=== PATIENT | female | born 1945 | race Hispanic/Latino ===

== ENCOUNTER → 2022-05-06 | Outpatient (CLI) | payer MEDICARE, OTHER ==
[2022-05-06 16:30] LABS: ALBUMIN 3.7 g/dL (3.5-5.0); CREATININE 0.8 mg/dL (0.5-1.5); POTASSIUM 4.4 mmol/L (3.5-5.1); TOTAL PROTEIN, SERUM 6.9 g/dL (6.0-8.3)
== END | disposition home or self-care (01) ==
LOC: LAB 14:20
PROVIDERS: ATTEND Student in an Organized Health Care Education/Training Program
DX: R06.09 Other forms of dyspnea (principal)
CPT/HCPCS: 36415; 80053

== ENCOUNTER → 2022-05-22 | Outpatient (CLI) | payer OTHER ==
[~2022-05-22] MED LIST: METOPROLOL TARTRATE 1 MG/ML 5ML VIAL IV ONE
== END | disposition home or self-care (01) ==
LOC: RAH 10:47
PROVIDERS: ATTEND Student in an Organized Health Care Education/Training Program
DX: R06.00 Dyspnea, unspecified (principal); M47.815 Spondylosis without myelopathy or radiculopathy, thoracolumbar region
CPT/HCPCS: 75574; J3490 ×2

== ENCOUNTER → 2022-05-23 | Outpatient (CLI) | payer OTHER | END | disposition home or self-care (01) | LOC: SHCH 11:06 | PROVIDERS: ATTEND Student in an Organized Health Care Education/Training Program | DX: R06.00 Dyspnea, unspecified (principal) | CPT/HCPCS: 93306; J3490 ==

== ENCOUNTER 2022-07-10 05:58 | Day surgery (SDC) | payer OTHER ==
[2022-07-08 09:33] LABS: BASOPHILS % (AUTO) 0.6 % (0.0-5.0); EOSINOPHILS % (AUTO) 6.7 % (0.0-8.0); HEMATOCRIT 41.5 % (36-48); LYMPHOCYTES % (AUTO) 24.8 % (21.0-51.0); MEAN CORPUSCULAR HEMOGLOBIN 29.8 pg (27.0-33.0); MEAN CORPUSCULAR HGB CONC 31.6 g/dL (32.0-36.0); MEAN CORPUSCULAR VOLUME 94.3 fL (79-99); MONOCYTES % (AUTO) 6.5 % (3.0-13.0); NEUTROPHILS % (AUTO) 61.1 % (40.0-77.0); PLATELET COUNT (AUTO) 205 K/uL (130-400); RED CELL DISTRIBUTION WIDTH 14.4 % (11.0-15.5); WHITE BLOOD COUNT (AUTO) 7.2 K/uL (4.8-10.8)
[2022-07-08 09:41] LABS: CREATININE 0.9 mg/dL (0.5-1.5); POTASSIUM 4.6 mmol/L (3.5-5.1)
[2022-07-08 09:43] VITALS: BP 166/68
[2022-07-08 09:43] LABS: INR 0.94 (0.85-1.15); PROTHROMBIN TIME 10.3 SEC (9.6-11.6)
[2022-07-08 09:44] LABS: PARTIAL THROMBOPLASTIN TIME 28.6 SEC (26.3-35.5)
[2022-07-08 09:57] LABS: APPEARANCE,URINE CLOUDY (CLEAR); BILIRUBIN,URINE NEGATIVE (NEGATIVE); COLOR,URINE LIGHT-YELLOW (YELLOW); GLUCOSE, URINE (UA) >=1000 mg/dL (NEGATIVE); KETONES,URINE NEGATIVE (NEGATIVE); LEUKOCYTE ESTERASE ,URINE 500 Leu/uL (NEGATIVE); NITRATE,URINE NEGATIVE (NEGATIVE); OCCULT BLOOD,URINE NEGATIVE (NEGATIVE); PH,URINE 6.5 (5.0-8.0); PROTEIN,URINE NEGATIVE (NEGATIVE); UROBILINOGEN,URINE 0.2 mg/dL (0.2-1.0)
[2022-07-08 10:00] LABS: B-TYPE NATRIURETIC PEPTIDE 19 pg/mL (0-100)
[2022-07-08 10:02] LABS: BACTERIA,URINE FEW /HPF (None Seen); SQUAMOUS EPITHELIAL CELL,UR RARE /HPF (0-2); WBC,URINE TNTC /HPF (0-1)
[2022-07-10] VITALS (14 sets, daily range): BP systolic 119–156; BP diastolic 57–96
[~2022-07-10] VITALS: Ht 154.9 cm; Wt 68.5 kg
[~2022-07-10 05:58] MED LIST changes: +AEC81 PO; +ATOR40TA69 PO; +EMPA25TA PO; +INSU300I SQ; +LETR2.5T7 PO; +LISI5TAB21 PO; +METO-408 PO; -METOPROLOL TARTRATE 1 MG/ML 5ML VIAL IV ONE; +PREG50CA63 PO
[2022-07-10] MEDS ORDERED: 0.9%NACL 1000ML 1,000 ML IV ONE (06:17)
[2022-07-10] MEDS ORDERED: LIDOCAINE HCL 400MG/20ML VIAL ONE (07:10)
[2022-07-10] MEDS ORDERED: FENTANYL CITRATE PF 50 MCG/1 ML 2ML VIAL ONE (07:11)
[2022-07-10] MEDS ORDERED: IOHEXOL-350 75 ML VIAL IV ONE (07:11)
[2022-07-10] MEDS ORDERED: NITROGLYCERIN 50MG VIAL ONE (07:11)
[2022-07-10] MEDS ORDERED: HEPARIN 10,000 UNIT/10ML (1,000 UNIT/ML) VIAL ONE (07:11)
[2022-07-10] MEDS ORDERED: VERAPAMIL HCL 2.5 MG/ML VIAL ONE (07:11)
[2022-07-10] MEDS ORDERED: MIDAZOLAM HCL 1 MG/ML 2ML VIAL ONE (07:11)
[2022-07-10] MEDS ORDERED: IOHEXOL-350 50ML VIAL IV ONE (07:11)
[2022-07-10] MEDS ORDERED: GLUCAGON 1MG KIT 1 MG ML IM PRN (08:30)
[2022-07-10] MEDS ORDERED: DEXTROSE 50%-WATER 50 ML DISP.SYRIN IV PRN (08:30)
[2022-07-10] MEDS ORDERED: 0.9%NACL 1000ML 1,000 ML IV SCH (08:30)
== END 2022-07-10 12:50 | disposition home or self-care (01) ==
LOC: DAH 05:58
PROVIDERS: ATTEND Student in an Organized Health Care Education/Training Program
DX: I25.119 Atherosclerotic heart disease of native coronary artery with unspecified angina pectoris (principal); I10 Essential (primary) hypertension; E78.5 Hyperlipidemia, unspecified; E11.9 Type 2 diabetes mellitus without complications; Z79.01 Long term (current) use of anticoagulants; Z79.899 Other long term (current) drug therapy; Z85.3 Personal history of malignant neoplasm of breast; Z92.21 Personal history of antineoplastic chemotherapy; Z90.13 Acquired absence of bilateral breasts and nipples; Z98.890 Other specified postprocedural states; Z98.51 Tubal ligation status; Z82.49 Family history of ischemic heart disease and other diseases of the circulatory system; Z83.3 Family history of diabetes mellitus; Z83.430 Family history of elevated lipoprotein(a)
CPT/HCPCS: 80048; 83880; 85025; 85610; 85730; 87088; 81001; 36415; 71045; 93005; 93458; 87077; 87186; 82948 ×2; C1769; C1894; A4649; J3010; J3490 ×3; J7030; J1644 ×2; J2250; Q9967; A4215; A4335; A4222; A4221; A4663; A4216; A4606; A4223 ×3; A4554; 96360; 96361; 99156; 99157

== ENCOUNTER 2023-08-28 12:13 | Emergency (ER) | payer OTHER ==
[~2023-08-28] VITALS: Ht 154.9 cm; Wt 70.3 kg
[~2023-08-28 12:13] MED LIST changes: +ATOR10 PO; -ATOR40TA69 PO; -INSU300I SQ; -PREG50CA63 PO; +PREG50CA64 PO
[2023-08-28] MEDS: 0.9%NACL 1000ML 1,000 ML IV ONE (12:37)
[2023-08-28] MEDS: KETOROLAC 15MG/ML VIAL (15MG/ML) IV ONE (12:37)
[2023-08-28 12:59] LABS: APPEARANCE,URINE CLEAR (CLEAR); BILIRUBIN,URINE NEGATIVE (NEGATIVE); COLOR,URINE COLORLESS (YELLOW); GLUCOSE, URINE (UA) NEGATIVE (NEGATIVE); KETONES,URINE NEGATIVE (NEGATIVE); LEUKOCYTE ESTERASE ,URINE NEGATIVE Leu/uL (NEGATIVE); NITRATE,URINE NEGATIVE (NEGATIVE); OCCULT BLOOD,URINE NEGATIVE (NEGATIVE); PROTEIN,URINE NEGATIVE (NEGATIVE); UROBILINOGEN,URINE 0.2 mg/dL (0.2-1.0)
[2023-08-28 13:03] LABS: ADD UA MICROSCOPIC NO
[2023-08-28 13:49] LABS: BASOPHILS # (AUTO) 0.05 K/uL (0.00-0.20); BASOPHILS % (AUTO) 0.7 % (0.0-5.0); EOSINOPHILS # (AUTO) 0.66 K/uL (0.00-0.70); EOSINOPHILS % (AUTO) 9.7 % (0.0-8.0); HEMATOCRIT 32.1 % (36-48); IMMATURE GRANULOCYTE ABSOLUTE 0.01 K/uL (0-1); LYMPHOCYTES # (AUTO) 2.4 K/uL (1.0-4.8); LYMPHOCYTES % (AUTO) 35.3 % (21.0-51.0); MEAN CORPUSCULAR HEMOGLOBIN 30.8 pg (27.0-33.0); MEAN CORPUSCULAR VOLUME 90.7 fL (79-99); MONOCYTES # (AUTO) 0.7 K/uL (0.1-1.0); NEUTROPHILS % (AUTO) 44.2 % (40.0-77.0); PLATELET COUNT (AUTO) 167 K/uL (130-400); RED BLOOD CELL COUNT(AUTO) 3.54 MIL/uL (4.00-5.50); RED CELL DISTRIBUTION WIDTH 14.5 % (11.0-15.5); WHITE BLOOD COUNT (AUTO) 6.8 K/uL (4.8-10.8)
[2023-08-28 13:58] LABS: CREATININE 1.1 mg/dL (0.5-1.0); POTASSIUM 4.3 mmol/L (3.5-5.1)
[2023-08-28 14:04] LABS: ALBUMIN 3.4 g/dL (3.5-5.0); BILIRUBIN,TOTAL 0.5 mg/dL (0.2-1.0); TOTAL PROTEIN, SERUM 6.6 g/dL (6.0-8.3)
[2023-08-28 14:21] VITALS: BP 157/71; PULSE 82; RESP 16; O2SAT 99
[2023-08-28] MEDS ORDERED: DICY20TA2 PO (14:47)
== END 2023-08-28 15:07 | disposition home or self-care (01) ==
LOC: EDH 12:13
DX: R10.84 Generalized abdominal pain (principal); R19.7 Diarrhea, unspecified; E11.9 Type 2 diabetes mellitus without complications; E78.00 Pure hypercholesterolemia, unspecified; Z79.82 Long term (current) use of aspirin; Z79.899 Other long term (current) drug therapy; Z90.49 Acquired absence of other specified parts of digestive tract; Z90.89 Acquired absence of other organs; Z98.890 Other specified postprocedural states; Z88.8 Allergy status to other drugs, medicaments and biological substances
CPT/HCPCS: 99283; 96374; 96361; 80053; 83690; 85025; 81003; 36415; J7030; J1885

== ENCOUNTER → 2023-11-06 | Outpatient (CLI) | payer OTHER ==
[~2023-11-06] MED LIST changes: +DICY20TA2 PO
[2023-11-06 12:22] LABS: HEMOGLOBIN A1C 6.3 % (4.0-6.0)
[2023-11-06 12:26] LABS: ALBUMIN 3.7 g/dL (3.5-5.0); BILIRUBIN,TOTAL 0.5 mg/dL (0.2-1.0); CREATININE 1.2 mg/dL (0.5-1.0); POTASSIUM 4.5 mmol/L (3.5-5.1); TOTAL PROTEIN, SERUM 7.3 g/dL (6.0-8.3)
== END | disposition home or self-care (01) ==
LOC: LAB 08:21
PROVIDERS: ATTEND Student in an Organized Health Care Education/Training Program
DX: E11.9 Type 2 diabetes mellitus without complications (principal); E78.5 Hyperlipidemia, unspecified; Z95.1 Presence of aortocoronary bypass graft
CPT/HCPCS: 36415; 80053; 80061; 83036

== ENCOUNTER → 2023-11-11 | Outpatient (CLI) | payer OTHER ==
[~2023-11-11] MED LIST changes: +IOHEXOL 350 MG/ML 100ML INFUS..BTL IV ONE; +METOPROLOL TARTRATE 1 MG/ML 5ML VIAL IV ONE
== END | disposition home or self-care (01) ==
LOC: RAH 13:52
PROVIDERS: ATTEND Student in an Organized Health Care Education/Training Program
DX: R07.9 Chest pain, unspecified (principal); Z95.1 Presence of aortocoronary bypass graft
CPT/HCPCS: J3490; Q9967

== ENCOUNTER → 2023-12-22 | Outpatient (CLI) | payer OTHER ==
[~2023-12-22] MED LIST changes: -IOHEXOL 350 MG/ML 100ML INFUS..BTL IV ONE; -METOPROLOL TARTRATE 1 MG/ML 5ML VIAL IV ONE
[2023-12-22 09:37] LABS: HEMOGLOBIN A1C 6.3 % (4.0-6.0)
[2023-12-22 09:42] LABS: ALBUMIN 3.7 g/dL (3.5-5.0); BILIRUBIN,TOTAL 0.6 mg/dL (0.2-1.0); POTASSIUM 4.7 mmol/L (3.5-5.1); TOTAL PROTEIN, SERUM 6.9 g/dL (6.0-8.3)
== END | disposition home or self-care (01) ==
LOC: LAB 08:35
PROVIDERS: ATTEND Student in an Organized Health Care Education/Training Program
DX: E11.9 Type 2 diabetes mellitus without complications (principal); E78.5 Hyperlipidemia, unspecified; Z95.1 Presence of aortocoronary bypass graft
CPT/HCPCS: 36415; 80053; 80061; 83036

== ENCOUNTER → 2023-12-23 | Outpatient (CLI) | payer OTHER ==
[~2023-12-23] MED LIST changes: +Solu-medROL 125MG VIAL ONE; +metoPROLOL tartRATE 1 MG/ML 5ML VIAL IV ONE
== END | disposition home or self-care (01) ==
LOC: RAH 11:29
PROVIDERS: ATTEND Student in an Organized Health Care Education/Training Program
DX: R07.9 Chest pain, unspecified (principal); M47.815 Spondylosis without myelopathy or radiculopathy, thoracolumbar region
CPT/HCPCS: 75574; J3490; J2919

== ENCOUNTER 2024-04-25 12:52 | Emergency (ER) | payer MEDICARE, OTHER ==
[~2024-04-25] VITALS: Ht 154.9 cm; Wt 69.9 kg
[~2024-04-25 12:52] MED LIST changes: +ASCO500T20 PO; +ASPI-1197 PO; +CALCIUM PO; +CHOL500051 PO; +CLOP-31 PO; -DICY20TA2 PO; -EMPA25TA PO; +INSU300I SQ; +METO-391 PO; -METO-408 PO; +SEMA1PEN3 SQ; -Solu-medROL 125MG VIAL ONE; -metoPROLOL tartRATE 1 MG/ML 5ML VIAL IV ONE
--- NOTE | 2024-04-25 13:21 | ERN ---
ED Note History of Present Illness Stated Complaint: SENT BY Chief Complaint: Headache Time Seen by MD: 12:56 Dictation: PATIENT IS A 78-YEAR-OLD FEMALE HERE SENT FROM A LOCAL PRIMARY CARE DOCTOR'S OFFICE AFTER SHE STARTED HAVING WORSENING RIGHT CHEST PAIN THAT RADIATES TO HER RIGHT SHOULDER. SHE STATES SHE HAS A HISTORY OF CHRONIC CHEST PAIN HOWEVER IT WAS WORSE TODAY WHEN THEY WERE DOING A BREATHING TEST. SHE STATES SHE HAS A STRONG CARDIAC HISTORY TO INCLUDE CABG X4, THEN STENTS X2 BY DR. DEVAN FOLEY. ALSO SHE STATES SHE HAS BEEN HAVING SHORTNESS A BREATH FOR SEVERAL DAYS WITHOUT FEVER CHILLS NO NAUSEA NO VOMITING. Allergies: Uncoded Allergies: IV IODINE (Allergy, Mild, 08/13/22) Home Meds Reported Medications Clopidogrel Bisulfate (Plavix) 75 Mg Tablet, 75 MG PO DAILY, TAB 02/01/24 Aspirin (Aspirin) 81 Mg Tab.chew, 81 MG PO HS, TAB.CHEW 01/29/24 Semaglutide (Ozempic) 1 Mg/0.75 Ml (4 Mg/3 Ml) Pen.injctr, 1 MG SQ QWEEK 01/29/24 Insulin Glargine,Hum.rec.anlog (Toujeo Solostar) 300 Unit/Ml (1.5 Ml) Insuln.pen, 45 UNIT SQ DAILY, SYRINGE 01/29/24 Pregabalin (Pregabalin) 50 Mg Capsule, 2 CAP PO BID MDD 2 Capsule(s) for 30 Days, #60 CAP 0 Refills 01/29/24 Cholecalciferol (Vitamin D3) (Vitamin D3) 125 Mcg (5000 Unit) Capsule, 1 CAP PO DAILY for 30 Days, #30 CAP 0 Refills 01/29/24 Ascorbic Acid (Vitamin C) 500 Mg Tablet, 1 TAB PO BID for 30 Days, #60 TAB 0 Refills 01/29/24 [Calcium] No Conflict Check, 1200 MG PO BID 01/29/24 Metoprolol Succinate (Metoprolol Succinate) 50 Mg Tab.er.24h, 50 MG PO DAILY, TAB 01/29/24 Atorvastatin Calcium (LIPITOR) 20 Mg Tab, 20 MG PO HS, TAB 08/11/22 Lisinopril (Lisinopril) 5 Mg Tablet, 5 MG PO DAILY, TAB 07/08/22 Letrozole (Letrozole) 2.5 Mg Tablet, 2.5 MG PO HS, TAB 07/08/22 Aspirin (ASPIRIN 81 MG ECTAB) 81 Mg Ectab, 81 MG PO HS, TAB.EC 07/08/22 Past Medical History Past Medical History: Cancer, Diabetes-Type II, High Cholesterol Surgical History: Tonsillectomy, CABG, Other Surgical History Other: MASTECTOMY PSYCH History: no pertinent psych hx History: Not Applicable RN Note Reviewed/Agreed w/PFSH: Yes Review of System Dictation CONSTITUTIONAL: NEGATIVE EXCEPT FOR HPI HEAD/FACE: NEGATIVE EXCEPT FOR HPI EENT: NEGATIVE EXCEPT FOR HPI RESPIRATORY: NEGATIVE EXCEPT FOR HPI CHEST PAIN/SHORTNESS A BREATH GASTROINTESTINAL/ABDOMINAL: NEGATIVE EXCEPT FOR HPI GENITOURINARY: NEGATIVE EXCEPT FOR HPI MUSCULOSKELETAL: NEGATIVE EXCEPT FOR HPI INTEGUMENTARY: NEGATIVE EXCEPT FOR HPI NEUROLOGICAL/PSYCH: NEGATIVE EXCEPT FOR HPI HEMATOLOGIC/LYMPHATIC: NEGATIVE EXCEPT FOR HPI ALL SYSTEMS NEGATIVE, EXCEPT NOTED ABOVE. 13 POINT REVIEW OF SYSTEMS ASSESSED AND ALL NEGATIVE EXCEPT FOR ABOVE. Initial Vital Sign VS Vital Signs Date Time Temp Pulse Resp B/P (MAP) Pulse Ox O2 Delivery O2 Flow Rate FiO2 04/25/24 13:19 97.9 90 16 128/74 98 Room Air 0 04/25/24 17:00 21 Physical Exam Dictation VITAL SIGNS REVIEWED GENERAL APPEARANCE: ALERT, ORIENTED X 3, MILD ACUTE DISTRESS, WELL DEVELOPED, NOURISHED. HEAD AND FACE: NON-TRAUMATIC. EYES: PERRL, PINK CONJUNCTIVAS, EYELID NO TRAUMA, ANTERIOR CHAMBER WITH ARCUS SENILIS. EARS: PINNAS INTACT AND NO SIGNS OF TRAUMA OR ERYTHEMA EAR CANALS CLEAR AND NO DISCHARGE TM NO ERYTHEMA NOSE: NO DISCHARGE, NO BLEEDING. OROPHARYNX: MOUTH NORMAL, TONGUE PINK, PHARYNX CLEAR,NO ERYTHEMA, TONSILS NO EXUDATES, NO ABSCESSES NOTED, MUCOUS MEMBRANE MOIST NECK: SUPPLE, NON-TENDER, NO THYROMEGALY, NO MASSES, NO JVD, NO BRUITS BREAST:DEFERRED CHEST:NO TENDERNESS, NO CREPITUS, NO PARADOXICAL MOVEMENT, NO RETRACTIONS LUNGS:CLEAR, WELL-VENTILATED, SYMMETRIC, NO RALES, NO WHEEZING, NO RHONCHI, NO STRIDOR, GOOD BREATH SOUNDS BILATERALLY HEART: REGULAR RATE, REGULAR RHYTHM, NO MURMUR, NO GALLOPS VASCULAR: NO PERIPHERAL EDEMA, ABDOMEN: SOFT, POSITIVE BOWEL SOUNDS, NONDISTENDED, NO GUARDING, NONTENDER, NO REBOUND, NO MASSES NO HEPATOMEGALY, NO SPLENOMEGALY, NO JC'S SIGN, NO HERNIAS. RECTAL: DEFERRED GENITAL: DEFERRED NEUROLOGICAL: NORMAL SPEECH, MOTOR FUNCTION INTACT, SENSORY FUNCTION INTACT MUSCULOSKELETAL: NECK NONTENDER, FULL RANGE OF MOTION, BACK NONTENDER, FULL RANGE OF MOTION, EXTREMITIES: NONTENDER, FULL RANGE OF MOTION SKIN: COLOR PINK, DRY, NO TURGOR, NO RASH, NO LACERATIONS, NO ABRASIONS, NO CONTUSIONS. LYMPHATIC: DEFERRED Results (Laboratory/Radiology) Laboratory/Radiology Laboratory Tests Test 04/25/24 14:07 White Blood Count 7.0 K/uL (4.8-10.8) Red Blood Count 3.86 MIL/uL (4.00-5.50) L Hemoglobin 12.1 g/dL (12.0-16.0) Hematocrit 36.6 % (36-48) Mean Corpuscular Volume 94.8 fL (79-99) Mean Corpuscular Hemoglobin 31.3 pg (27.0-33.0) Mean Corpuscular Hemoglobin Concent 33.1 g/dL (32.0-36.0) Red Cell Distribution Width 13.2 % (11.0-15.5) Platelet Count 228 K/uL (130-400) Mean Platelet Volume 10.9 fL (7.5-10.5) H Immature Granulocyte % (Auto) 0.3 % (0-1) Neutrophils (%) (Auto) 60.0 % (40.0-77.0) Lymphocytes (%) (Auto) 27.2 % (21.0-51.0) Monocytes (%) (Auto) 5.3 % (3.0-13.0) Eosinophils (%) (Auto) 6.6 % (0.0-8.0) Basophils (%) (Auto) 0.6 % (0.0-5.0) Neutrophils # (Auto) 4.2 K/uL (1.8-7.7) Lymphocytes # (Auto) 1.9 K/uL (1.0-4.8) Monocytes # (Auto) 0.4 K/uL (0.1-1.0) Eosinophils # (Auto) 0.46 K/uL (0.00-0.70) Basophils # (Auto) 0.04 K/uL (0.00-0.20) Absolute Immature Granulocyte (auto 0.02 K/uL (0-1) Nucleated Red Blood Cells 0.0 % (0.0-0.19) Sodium Level 143 mmol/L (136-145) Potassium Level 3.8 mmol/L (3.5-5.1) Chloride Level 108 mmol/L (101-111) Carbon Dioxide Level 28 mmol/L (21-32) Blood Urea Nitrogen 32 mg/dL (7-18) H Creatinine 1.0 mg/dL (0.5-1.0) Glomerular Filtration Rate Calc 58 mL/min (>90) Random Glucose 87 mg/dL (70-105) Total Calcium 10.2 mg/dL (8.5-10.1) H Magnesium Level 1.80 mg/dL (1.80-2.40) Troponin I High Sensitivity 7 ng/L (4-50) B-Type Natriuretic Peptide 14 pg/mL (0-100) Labs Reviewed?: Yes EKG Comment: EKG SINUS RHYTHM/HEART RATE 89/AXIS NORMAL/0 CHANGES TO LEADS TWO AND THREE ED Course ED Course Orders Procedure Category Date Status Time Cbc With Differential LAB 04/25/24 Complete 13:18 B-Type Natriuretic LAB 04/25/24 Complete Peptide 13:18 Chest 1vw RAD 04/25/24 Resulted 13:18 12 Lead Ekg Tracing- EKG 04/25/24 Complete Technical 13:18 Nitroglycerin 0.4mg PHA 04/25/24 Complete Sl Tab (Nitrostat) 13:30 Magnesium LAB 04/25/24 Complete 13:18 Troponin I High LAB 04/25/24 Complete Sensitivity 13:18 Basic Metabolic Panel LAB 04/25/24 Complete 13:18 Acetaminophen 500mg PHA 04/25/24 Complete Tab (Tylenol 500mg T 17:30 Current Medications Medications (Trade) Dose Ordered Sig/Letty Route PRN Reason Start Time Stop Time Status Last Admin Dose Admin Acetaminophen (TYLenol 500MG TAB) 1,000 mg ONCE ONCE PO 04/25/24 17:30 04/25/24 17:31 DC 04/25/24 17:26 Nitroglycerin (Nitrostat) 0.4 mg Q5M PRN SL CHEST PAIN 04/25/24 13:30 04/25/24 17:43 DC 04/25/24 17:26 Vital Signs Date Time Temp Pulse Resp B/P (MAP) Pulse Ox O2 Delivery O2 Flow Rate FiO2 04/25/24 17:42 97.9 84 18 112/60 98 Room Air* 0 21 04/25/24 17:00 82 18 140/61 99 Room Air* 0 21 04/25/24 13:19 97.9 90 16 128/74 98 Room Air 0 CARDIAC WORKUP NEGATIVE, PATIENT HAS 0 CHANGES ON HER EKG WITH TROPONIN NORMAL. PAIN IS REPRODUCIBLE WITH PALPATION AND PATIENT WISHES TO BE DISCHARGED HOME AND STATES SHE WILL FOLLOW UP WITH HER PRIMARY CARE DOCTOR. HEART Score Response (Comments) Value EKG: Repolarization changes 1 Age: > 65yrs (+2) 2 Risk Factors: 3+ risk factors (+2) 2 Initial Troponin: Normal limit (0) 0 Total 5 Medical Decision Making MDM MDM: DIFFERENTIAL DIAGNOSIS: ACS/AMI/ELECTROLYTE IMBALANCE/HE HAS DEHYDRATION /COSTOCHONDRITIS RATIONALE: TESTS CONSIDERED AND ORDERED SECONDARY TO SHARED DECISION MAKING INCLUDE: EKG/LABS PREVIOUS OUTSIDE RECORDS REVIEWED: OLD ER VISITS. RISK OF COMPLICATION AND/OR MORBIDITY OR MORTALITY OF PATIENT MANAGEMENT: NONE MEDICATIONS-PER MEDICATION RECONCILIATION NEED FOR HOSPITALIZATION: PATIENT DOES NOT MEET CRITERIA FOR HOSPITALIZATION. NO NEED FOR EMERGENCY MAJOR/MINOR SURGERY: NO THERE ARE NO SOCIAL CONCERNS WITH THIS PATIENT. PRESCRIPTION DRUG MANAGEMENT NONE PRESCRIPTIONS WILL INCLUDE SYMPTOMATIC CARE PATIENT'S PRIOR EXTERNAL MEDICAL RECORDS FROM OTHER ER VISITS WERE REVIEWED BY ME INDICATED. PRIOR TESTING AND RESULTS FROM PREVIOUS VISITS WERE REVIEWED. PRIOR TESTS WERE TAKEN INTO ACCOUNT WITH MEDICAL DECISION MAKING AND RESOURCE UTILIZATION, INDEPENDENT HISTORIAN/HISTORIANS WERE USED TO OBTAIN COMPLETE MEDICAL HISTORY. I INDEPENDENTLY INTERPRETED THE TEST THAT WERE PERFORMED, RESULTS WERE REVIEWED BY ME AND CONSIDERED FINDINGS ON RADIOLOGY IF ORDERED. MEDICAL MANAGEMENT AND EXAMINATION INTERPRETATION DISCUSSIONS WERE HAD BY ME WITH OTHER QUALIFIED HEALTHCARE PROFESSIONALS INDICATED FOR THE PATIENT'S CARE. DX & DISP Disposition: Discharge Departure Impression: Primary Impression: Atypical chest pain Additional Impression: Dehydration Condition: Stable Additional Instructions: FOLLOW-UP WITH PRIMARY CARE PROVIDER IN 1 TO 2 DAYS. TAKE MEDICATIONS DIRECTED HERE IN THE EMERGENCY ROOM. OKAY TO CONTINUE HOME MEDICATIONS UNLESS OTHERWISE DISCUSSED DURING YOUR VISIT IN THE EMERGENCY ROOM TODAY. RETURN TO YOUR NEAREST EMERGENCY ROOM IF SYMPTOMS WORSEN OR IF THERE IS NO IMPROVEMENT. CALL 911 IF YOU NEED IMMEDIATE ASSISTANCE. TAKE TYLENOL OR MOTRIN [id number] NEEDED AND IF NO CONTRAINDICATIONS ARE PRESENT. INCREASE ORAL HYDRATION. A WOUND CULTURE OR URINE CULTURE WAS ORDERED HERE IN THE EMERGENCY ROOM DEPARTMENT PLEASE FOLLOW-UP WITH PRIMARY CARE PROVIDER AND ADVISE THEM TO GET REPEAT PORTS FROM OUR FACILITY. IF YOU HAD ANY MARE WRAP/SPLINTS THAT WERE APPLIED HERE, PLEASE DO NOT REMOVE THEM UNTIL YOU SEE YOUR PRIMARY CARE OR SPECIALTY. SEE YOUR ELECTRONIC WARFARE LINGUIST FOR FOLLOW UP IN THE NEXT 2-3 DAYS. Referrals: AARON FLORES M.D. (PCP) Time of Disposition: 17:26 I have reviewed the case, and I agree with, Diagnosis and Plan I performed the substantive portion of the visit. I have reviewed and personally made and approve the management plan that is documented in the notes by myself or the SONIA. I acknowledge full responsibility for the patient's management plan. LINDA LEE NP Apr 25, 2024 13:21 ASA LEONARD MD Apr 26, 2024 18:43
--- NOTE | 2024-04-25 13:25 | EKG ---
[facility] Test Date: 2024-04-25 Test Time: 13:21:27 Pat Name: JUAN CARLOS PEDRO Department: [facility] Room: Gender: F Anatomy Teacher: [id number] : [id number] Requested By: LINDA LEE Order Number: [id number] Reading MD: Abdirizak Barrientos Measurements Intervals [place] Rate: 89 P: 12 CT: 170 QRS: -31 QRSD: 91 T: 13 QT: 361 QTc: 439 Interpretive Statements Sinus rhythm Inferior infarct, old Compared to ECG 01/29/2024 15:24:18 Myocardial infarct finding now present Electronically Signed On 04-27-2024 19:58:27 CENTRAL OFFICE SUPERVISOR by Abdirizak Barrientos Please click the below link to view image of tracing.
[2024-04-25 14:16] LABS: BASOPHILS # (AUTO) 0.04 K/uL (0.00-0.20); BASOPHILS % (AUTO) 0.6 % (0.0-5.0); EOSINOPHILS # (AUTO) 0.46 K/uL (0.00-0.70); EOSINOPHILS % (AUTO) 6.6 % (0.0-8.0); HEMATOCRIT 36.6 % (36-48); IMMATURE GRANULOCYTE ABSOLUTE 0.02 K/uL (0-1); LYMPHOCYTES # (AUTO) 1.9 K/uL (1.0-4.8); LYMPHOCYTES % (AUTO) 27.2 % (21.0-51.0); MEAN CORPUSCULAR HEMOGLOBIN 31.3 pg (27.0-33.0); MEAN CORPUSCULAR HGB CONC 33.1 g/dL (32.0-36.0); MEAN CORPUSCULAR VOLUME 94.8 fL (79-99); MONOCYTES # (AUTO) 0.4 K/uL (0.1-1.0); MONOCYTES % (AUTO) 5.3 % (3.0-13.0); NEUTROPHILS # (AUTO) 4.2 K/uL (1.8-7.7); PLATELET COUNT (AUTO) 228 K/uL (130-400); RED BLOOD CELL COUNT(AUTO) 3.86 MIL/uL (4.00-5.50); RED CELL DISTRIBUTION WIDTH 13.2 % (11.0-15.5)
[2024-04-25 14:26] LABS: MAGNESIUM 1.8 mg/dL (1.80-2.40); POTASSIUM 3.8 mmol/L (3.5-5.1)
[2024-04-25 14:51] LABS: B-TYPE NATRIURETIC PEPTIDE 14 pg/mL (0-100)
--- NOTE | 2024-04-25 15:05 | HMCIMG ---
CHEST 1VW REASON: CHEST PAIN COMPARISON: 01/29/2024 FINDINGS: Single view of the chest was obtained. Lungs are clear. Heart size is normal. There is no pulmonary vascular congestion. Mediastinum and bony thorax appear unremarkable. Previous median sternotomy is again noted. IMPRESSION: 1. No acute finding, no change.
--- NOTE | 2024-04-25 17:03 | NUR ---
PT REPORTS SHE WAS AT HER [facility] OFFICE GETTING EVALUATED FOR BREATHING WHEN SHE BEGAN FEELING TIGHTNESS TO HER CHEST. PT STATES SHE WAS THERE FOR EVALUATION FOLLOWING FALL 1 WEEK PRIOR. PT STATES THAT AT TIME OF FALL SHE WAS EVALUATED AT MEDICAL FACILITY AND RELEASED WITHOUT ANY SIGNIFICANT FINDINGS.
[2024-04-25] MEDS: acetaMINOPHEN 500 MG TABLET PO ONE (17:26)
[2024-04-25] MEDS: NITROGLYCERIN 0.4 MG SL TAB SL PRN (17:26)
[2024-04-25 17:42] VITALS: BP 112/60; PULSE 84; RESP 18; TEMP 97.9; O2SAT 98
== END 2024-04-25 17:43 | disposition home or self-care (01) ==
LOC: EDH 12:52
DX: R07.89 Other chest pain (principal); E86.0 Dehydration; E11.9 Type 2 diabetes mellitus without complications; E78.00 Pure hypercholesterolemia, unspecified; Z79.02 Long term (current) use of antithrombotics/antiplatelets; Z79.4 Long term (current) use of insulin; Z79.811 Long term (current) use of aromatase inhibitors; Z79.82 Long term (current) use of aspirin; Z79.85 Long-term (current) use of injectable non-insulin antidiabetic drugs; Z79.899 Other long term (current) drug therapy; Z88.8 Allergy status to other drugs, medicaments and biological substances; Z90.89 Acquired absence of other organs; Z91.041 Radiographic dye allergy status; Z95.1 Presence of aortocoronary bypass graft
CPT/HCPCS: 36415; 71045; 80048; 83735; 83880; 84484; 85025; 93005; 99285